=== PATIENT | female | born 1960 | race Caucasian/White ===

== ENCOUNTER 2020-08-15 17:23 | Emergency (ER) | payer OTHER ==
[~2020-08-15 17:23] MED LIST: CLARITIN10 MG PO; IBUPROFEN800 MG PO; TAGAMET PO
== END 2020-08-15 17:56 | disposition left against medical advice (07) ==
LOC: ER1 17:23
DX: Z53.21 Procedure and treatment not carried out due to patient leaving prior to being seen by health care provider (principal)